=== PATIENT | male | born 1990 | race Caucasian/White ===

== ENCOUNTER 2017-08-16 22:56 | Inpatient (IN) | payer MEDICAID ==
[~2017-08-16] VITALS: Ht 185.4 cm; Wt 61.2 kg
[~2017-08-16 22:56] MED LIST: ACET-2869 PO; AMOX-999 PO; DOCU-299 PO; LACT1.4C PO
[2017-08-16 23:01] VITALS: BP 90/50
--- NOTE | 2017-08-16 23:05 | NUR ---
DR GALE AND CHARGE MADE AWARE. PT TO BE TAKEN TO A BED SSON BED IS AVAILABLE. PT AMBULATED TO CHAIR OVERFLOW.
[2017-08-16] MEDS ORDERED: IBUPROFEN 600 MG TAB PO ONE (23:15)
[2017-08-16] MEDS ORDERED: IBUPROFEN 600 MG TAB ONE (23:16)
[2017-08-16] MEDS ORDERED: NACL 0.9% 2,000 ML IV ONE (23:19)
--- NOTE | 2017-08-16 23:42 | NUR ---
PT TAKEN TO BED 12
--- NOTE | 2017-08-16 23:43 | NUR ---
PT SIGN CT WITH CONTRAST, PLACE IN PT CHART
--- NOTE | 2017-08-17 00:13 | NUR ---
Dr. Barker evaluating patient.
--- NOTE | 2017-08-17 00:25 | NUR ---
26 Y/O M W/C/O R SIDE ABD PAIN X LAST TUESDAY AND FEVER. PT STATES HAD AN APPENDECTOMY DONE HERE 02 08/13/17 AND HAS HAD A FEVER, COSTIPATION,SEVERE ABD PAIN SINCE THE. MED HX APPENDECTOMY.DENIES N/V/D; PATIENT STATES PAIN OF 10/10 AT THIS TIME; PATIENT POSITIONED FOR COMFORT; HOB ELEVATED; BEDRAILS UP X2; BED DOWN. ER MD MADE AWARE OF PT STATUS.
[2017-08-17 00:26] LABS: HEMATOCRIT 45.3 % (36-52); HEMOGLOBIN 14.6 g/dL (12.0-18.0); MEAN CORPUSCULAR HEMOGLOBIN 28 pg (27-31); MEAN CORPUSCULAR HGB CONC 32 g/dL (33-37); MEAN CORPUSCULAR VOLUME 87 fL (80-94); PLATELET COUNT (AUTO) 221 K/uL (140-450); RED BLOOD CELL COUNT(AUTO) 5.21 MIL/uL (4.20-6.10); RED CELL DISTRIBUTION WIDTH 12.5 % (11.6-13.7); WHITE BLOOD COUNT (AUTO) 13.5 K/uL (4.8-10.8)
[2017-08-17] MEDS ORDERED: ONDANSETRON 4 MG/2 ML VIAL IVP ONE (00:30)
[2017-08-17] MEDS ORDERED: MORPHINE SULFATE 4 MG/ML SYR IVP ONE (00:30)
[2017-08-17 00:32] LABS: APPEARANCE,URINE CLEAR (CLEAR); BILIRUBIN,URINE NEGATIVE (NEGATIVE); BLOOD, URINE TRACE-I (NEGATIVE); COLOR,URINE YELLOW (YELLOW); LEUKOCYTE ESTERASE ,URINE NEGATIVE (NEGATIVE); NITRITE, URINE NEGATIVE (NEGATIVE); PH,URINE 7.5 (5.0-9.0); UGLUCOSE NEGATIVE (NEGATIVE)
[2017-08-17 00:32] LABS: ANION GAP 15.4 (8-16); CARBON DIOXIDE 27.1 mmol/L (21-32); CREATININE 1.2 mg/dL (0.7-1.3); POTASSIUM 3.5 mmol/L (3.5-5.1)
--- NOTE | 2017-08-17 00:32 | NUR ---
PT LEFT TO RADIOLOGY VIA WHEELCHAIR, ACCOMPANIED BY SOURCING SPECIALIST
--- NOTE | 2017-08-17 00:32 | NUR ---
PT TAKEN TO CT
[2017-08-17 00:38] LABS: PROTHROMBIN TIME 11.3 secs (10.8-13.4)
[2017-08-17 00:39] LABS: ALBUMIN 3.7 g/dL (3.4-5.0); TOTAL BILIRUBIN 1.4 mg/dL (0.0-1.0)
[2017-08-17 00:46] LABS: LYMPHOCYTES % (MANUAL) 5 % (20-46); MONOCYTES % (MANUAL) 0 % (5-12)
--- NOTE | 2017-08-17 00:55 | NUR ---
PT RETURN FROM RADIOLOGY
[2017-08-17 00:57] LABS: RBC,URINE 0-5 (RARE) /HPF (0-5); WBC,URINE 0-5 (RARE) /HPF (0-5)
--- NOTE | 2017-08-17 01:34 | NUR ---
ON RAD; RESIDUAL APPENDIX FROM APPENDECTOMY; POSSIBLE ABSCESS;MILD ABOUT INTRAABDOMINAL FREE AIR; LIKELY POST-SX RELATED NO BOWEL OBSTRUCTION- ALDEN
--- NOTE | 2017-08-17 01:37 | NUR ---
ON RAD CALL WITH CRITICAL LAB FINDINGS INFLAMMATORY CHANGES, MD DR. GALE AWARE
[2017-08-17] MEDS ORDERED: NACL 0.9% 1,000 ML IV ONE (01:40)
[2017-08-17] MEDS ORDERED: metroNIDAZOLE 500 MG/NS PREMIX 100 ML IV ONE (01:40)
[2017-08-17] MEDS ORDERED: PIPERACILLIN/TAZOBACTAM 4.5 GM in DEXTROSE 5% 100 ML IV ONE (01:40)
--- NOTE | 2017-08-17 01:47 | NUR ---
ZOSYN 4.5GM NOT AVAILABLE IN ER, HOUSE SUP INFORMED
[2017-08-17] MEDS ORDERED: PIPERACILLIN/TAZOBACTAM 4.5 GM VIAL IV ONE (01:55)
[2017-08-17] MEDS ORDERED: DOCUSATE SODIUM 100 MG GELCAP PO PRN (02:20)
[2017-08-17 02:46] LABS: FREE T4 (FREE THYROXINE) 1.2 ng/dL (0.76-1.46); MAGNESIUM 1.6 mg/dL (1.8-2.4); PHOSPHORUS 1.9 mg/dL (2.5-4.9); THYROID STIMULATING HORMONE 1.54 uIU/mL (0.34-3.74)
--- NOTE | 2017-08-17 03:00 | NUR ---
ZOSYN 4.5 STARTED IN ER, ENDORSED TO DIANNA BARRON TO TELE FLOOR TO FINISH INFUSION
--- NOTE | 2017-08-17 03:09 | NUR ---
Patient will be admitted to care of DR. AMBROSE. Admited to TELE FLOOR. Will go to room 111A. Belongings list completed. Report to DIANNA BARRON.
--- NOTE | 2017-08-17 03:10 | NUR ---
ADMITTED PATIENT TO THE TELE UNIT, PATIENT AWAKE ALERT ORIENTED X4, NO S/S OF DISTRESS NOTED, RESPIRATION EVEN AND UNLABORED, IV PATENT AND INTACT, FLUSHED 10ML NS. TELE MONITOR PLACED ON PATIENT, PLAN OF CARE DISCUSSED, PATIENT VERBALIZED UNDERSTANDING, CALL LIGHT WITHIN REACH, SAFETY MEASURE ENSURED, WILL CONTINUE TO MONITOR.
[2017-08-17 03:40] VITALS: BP 90/52
[2017-08-17] MEDS ORDERED: LEVOFLOXACIN 750 MG/D5W PREMIX 150 ML IV SCH ×2 (04:00→08:00)
[2017-08-17] MEDS: NACL 0.9% 1,000 ML IV SCH ×3 (04:06→17:55)
[2017-08-17] MEDS ORDERED: metroNIDAZOLE 500 MG/NS PREMIX 100 ML IV SCH ×4 (05:00→13:00)
--- NOTE | 2017-08-17 06:11 | NUR ---
NO CHANGE IN CONDITION, PATIENT IS SLEEPING, NO S/S OF DISTRESS NOTED, RESPIRATION EVEN AND UNLABORED, CALL LIGHT WITHIN REACH, SAFETY MEASURE ENSURED, WILL CONTINUE TO MONITOR.
[2017-08-17] MEDS: HYDROcodone/APAP 7.5/325 MG 1 TAB PO PRN ×3 (06:47→17:10)
[2017-08-17 07:13] LABS: BASOPHILS # (AUTO) 0.4 K/uL (0.00-0.22); EOSINOPHILS # (AUTO) 0.1 K/uL (0-0.4); EOSINOPHILS % (AUTO) 0.5 % (0.0-4.0); HEMATOCRIT 37.3 % (36-52); HEMOGLOBIN 12.9 g/dL (12.0-18.0); LYMPHOCYTES # (AUTO) 1.3 K/uL (2.0-11.5); LYMPHOCYTES % (AUTO) 9.9 % (20.5-51.1); MEAN CORPUSCULAR HEMOGLOBIN 30 pg (27-31); MEAN CORPUSCULAR HGB CONC 35 g/dL (33-37); MEAN CORPUSCULAR VOLUME 86 fL (80-94); MONOCYTES # (AUTO) 0.7 K/uL (0.8-1.0); MONOCYTES % (AUTO) 5.7 % (1.7-9.3); NEUTROPHILS # (AUTO) 10.6 K/uL (1.8-7.7); NEUTROPHILS % (AUTO) 80.9 % (42.2-75.2); PLATELET COUNT (AUTO) 144 K/uL (140-450); RED BLOOD CELL COUNT(AUTO) 4.33 MIL/uL (4.20-6.10); RED CELL DISTRIBUTION WIDTH 12.9 % (11.6-13.7); WHITE BLOOD COUNT (AUTO) 13.1 K/uL (4.8-10.8)
--- NOTE | 2017-08-17 07:15 | NUR ---
ENDORSED PLAN OF CARE TO DAY SHIFT, PATIENT RESTING IN BED, IN STABLE CONDITION.
--- NOTE | 2017-08-17 07:16 | NUR ---
RECEIVED REPORT AT BEDSIDE FOR CONTINUITY OF CARE FROM BEAUTY CULTURIST APPRENTICE RN. PATIENT AWAKE ALERT ORIENTED X4, NO S/S OF DISTRESS NOTED, RESPIRATION EVEN AND UNLABORED, R AC AND L AC IVS PATENT, ASYMPTOMATIC, AND INTACT. R AC IV INFUSING IVF WELL. PLAN OF CARE DISCUSSED, PATIENT VERBALIZED UNDERSTANDING, SAFETY PRECAUTION IN PLACE, CALL LIGHT WITHIN REACH, WILL CONTINUE TO MONITOR.
[2017-08-17 07:44] LABS: ANION GAP 11.1 (8-16); CARBON DIOXIDE 28.4 mmol/L (21-32); CREATININE 0.9 mg/dL (0.7-1.3); POTASSIUM 4.5 mmol/L (3.5-5.1)
[2017-08-17 08:00] VITALS: BP 88/53
--- NOTE | 2017-08-17 08:58 | NUR ---
PATIENT HAS BEEN SCREENED AND CATEGORIZED MODERATE NUTRITION RISK. PATIENT WILL BE SEEN WITHIN 3-5 DAYS OF ADMISSION. 08/19/17-08/21/[address]
[2017-08-17] MEDS: DOCUSATE SODIUM 100 MG GELCAP PO SCH (09:12)
--- NOTE | 2017-08-17 10:30 | NUR ---
PT C/O 6/10 PAIN OF ABD D/T S/P APPENDECTOMY. NORCO PRN GIVEN. PT TOLERATED IT WELL. SAFETY PRECAUTION IN PLACE, CALL LIGHT WITHIN REACH, WILL CONTINUE TO MONITOR PATIENT.
[2017-08-17] MEDS: ACETAMINOPHEN 325 MG TAB PO PRN ×2 (11:43→18:40)
[2017-08-17] MEDS: MORPHINE SULFATE 2 MG/ML SYR IVP PRN (11:43)
--- NOTE | 2017-08-17 11:43 | NUR ---
PATIENT'S TEMP 102.6. PRN TYLENOL ADMINISTERED AND COOLING MEASURES BEGAN. MORPHINE PRN ALSO ADMINISTERED D/T PATIENT'S C/O 7/10 PAIN D/T S/P APPENDECTOMY. PATIENT TOLERATED IT WELL. SAFETY PRECAUTION IN PLACE, CALL LIGHT WITHIN REACH. WILL CONTINUE TO MONITOR PATIENT.
[2017-08-17 12:00] VITALS: BP 116/71
--- NOTE | 2017-08-17 12:30 | NUR ---
DR. GONZALEZ IN TO ASSESS THE PATIENT. WILL AWAIT FOR HER ORDERS.
--- NOTE | 2017-08-17 13:00 | NUR ---
BP 85/57, TEMP 101.6. MD AWARE. 500 ML NS BOLUS GIVEN. WILL CONTINUE TO MONITOR PATIENT.
--- NOTE | 2017-08-17 13:55 | NUR ---
DR. GONZALEZ AND DR. BROWN IN TO REASSESS PATIENT. WILL AWAIT THEIR UPDATED ORDERS.
[2017-08-17] MEDS: NACL 0.9% 500 ML IV SCH ×2 (14:13→15:24)
[2017-08-17] MEDS ORDERED: NICOTINE TRANSD SYS 7 MG/24 HR PATCH TD SCH (14:30)
--- NOTE | 2017-08-17 14:50 | NUR ---
BP 89/49, TEMP 99.9. MD AWARE. 500 ML NS BOLUS GIVEN. WILL CONTINUE TO MONITOR PATIENT.
--- NOTE | 2017-08-17 15:23 | NUR ---
BP 91/56, TEMP 99.2. AWARE. 500 ML NS BOLUS GIVEN. SAFETY PRECAUTION IN PLACE, CALL LIGHT WITHIN REACH. WILL CONTINUE TO MONITOR PATIENT. Addendum: 08/17/17 at 2026 by Cornelius Montes RN NO BOLUS GIVEN AT THIS TIME.
[2017-08-17] MEDS: MAGNESIUM OXIDE 400 MG TAB PO SCH (15:24)
[2017-08-17] MEDS ORDERED: NACL 0.9% 500 ML IV ONE (15:45)
[2017-08-17 16:00] VITALS: BP 97/57
--- NOTE | 2017-08-17 16:10 | NUR ---
BP 97/57, TEMP 98.1. PATIENT RESTING IN BED, GIRLFRIEND AT BEDSIDE. DENIES PAIN AT THIS TIME. BREATHING EVEN AND UNLABORED. SAFETY PRECAUTION IN PLACE, CALL LIGHT WITHIN REACH. WILL CONTINUE TO MONITOR PATIENT.
[2017-08-17] MEDS: PIPER/TAZO 3.375GM/D5W PREMIX 50 ML IV SCH ×2 (18:41→23:53)
--- NOTE | 2017-08-17 18:41 | NUR ---
IVPB ZOSYN ADMINISTERED. PATIENT TEMP 101.6. PRN TYLENOL ADMINISTERED. PATIENT TOLERATED THEM WELL. COOLING MEASURES PUT IN PLACE, WILL CONTINUE TO MONITOR PATIENT.
--- NOTE | 2017-08-17 19:25 | NUR ---
REPORT GIVEN AT BEDSIDE FOR CONTINUITY OF CARE TO WINDOW DRESSER RN. PATIENT IN STABLE CONDITION.
--- NOTE | 2017-08-17 19:28 | NUR ---
RECEIVED HANDOFF REPORT FROM AM RN. PATIENT A&OX4. PATIENT DENIES PAIN. IV SITE PATENT AND INTACT. NO SIGNS OR SYMPTOMS OF ACUTE DISTRESS NOTED. CALL LIGHT WITHIN REACH. SAFETY MEASURES ENSURED. WILL CONTINUE TO MONITOR.
--- NOTE | 2017-08-17 19:37 | NUR ---
DR. RODRIGUEZ IN TO SEE PATIENT
[2017-08-17 20:00] VITALS: BP 118/53
--- NOTE | 2017-08-17 20:00 | NUR ---
PATIENT OFF UNIT FOR CT. IV SITE PATENT AND INTACT.
--- NOTE | 2017-08-17 20:15 | NUR ---
PATIENT BACK ON UNIT FROM CT. IV SITE PATENT AND INTACT.
--- NOTE | 2017-08-17 20:30 | NUR ---
DR. RODRIGUEZ IN TO SEE PATIENT. DR. RODRIGUEZ SAID TO HOLD PM PO MEDICATION.
[2017-08-17] MEDS: SODIUM PHOS / POTASSIUM PHOS 1 PKT PDR PO SCH (21:00)
--- NOTE | 2017-08-17 21:15 | NUR ---
DR. RODRIGUEZ SPOKE WITH PATIENT REGARDING SURGERY. PATIENT HAS BEEN MADE AWARE OF RISKS AND BENEFITS OF SURGERY. PATIENT HAS DECLINED TO HAVE SECOND SURGERY. PATIENT IS AWARE OF RISKS BY DR. RODRIGUEZ.
[2017-08-17] MEDS ORDERED: BISACODYL 5 MG TABEC PO ONE (21:50)
--- NOTE | 2017-08-17 21:50 | NUR ---
BALBIR CALLED WITH CRITICAL CT. AWARE.
[2017-08-17] MEDS ORDERED: BISACODYL 5 MG TABEC PO SCH (22:00)
[2017-08-18] VITALS: BP 139/63
[2017-08-18] MEDS ORDERED: MAGNESIUM CITRATE 300 ML BTL PO SCH ×2 (02:09→08:00)
[2017-08-18 04:00] VITALS: BP 116/86
[2017-08-18] MEDS: ONDANSETRON 4 MG/2 ML VIAL IM/IVP PRN ×2 (05:28→21:51)
[2017-08-18] MEDS: PIPER/TAZO 3.375GM/D5W PREMIX 50 ML IV SCH ×3 (05:28→18:42)
[2017-08-18 06:27] LABS: T4 (THYROXINE) 6.8 ug/dL (4.5-12.0)
[2017-08-18 06:57] LABS: BASOPHILS # (AUTO) 0.1 K/uL (0.00-0.22); BASOPHILS % (AUTO) 0.5 % (0.0-2.0); EOSINOPHILS % (AUTO) 0.3 % (0.0-4.0); HEMATOCRIT 36.8 % (36-52); HEMOGLOBIN 12.9 g/dL (12.0-18.0); LYMPHOCYTES # (AUTO) 0.5 K/uL (2.0-11.5); LYMPHOCYTES % (AUTO) 3.4 % (20.5-51.1); MEAN CORPUSCULAR HEMOGLOBIN 30 pg (27-31); MEAN CORPUSCULAR HGB CONC 35 g/dL (33-37); MEAN CORPUSCULAR VOLUME 85 fL (80-94); MONOCYTES # (AUTO) 0.9 K/uL (0.8-1.0); MONOCYTES % (AUTO) 6.2 % (1.7-9.3); NEUTROPHILS # (AUTO) 13.1 K/uL (1.8-7.7); NEUTROPHILS % (AUTO) 89.6 % (42.2-75.2); PLATELET COUNT (AUTO) 138 K/uL (140-450); RED BLOOD CELL COUNT(AUTO) 4.36 MIL/uL (4.20-6.10); RED CELL DISTRIBUTION WIDTH 12.7 % (11.6-13.7)
[2017-08-18 07:15] LABS: MAGNESIUM 1.9 mg/dL (1.8-2.4); PHOSPHORUS 2.5 mg/dL (2.5-4.9)
[2017-08-18 07:18] LABS: ANION GAP 14.9 (8-16); CARBON DIOXIDE 23.9 mmol/L (21-32); CREATININE 0.8 mg/dL (0.7-1.3); POTASSIUM 3.8 mmol/L (3.5-5.1)
--- NOTE | 2017-08-18 07:30 | NUR ---
ENDORSED PLAN OF CARE TO AM RN. PATIENT IN STABLE CONDITION.
--- NOTE | 2017-08-18 07:31 | NUR ---
RECEIVED REPORT AT BEDSIDE FOR CONTINUITY OF CARE FROM MUSEUM SECURITY CHIEF RN. PATIENT AWAKE ALERT ORIENTED X4, NO S/S OF DISTRESS NOTED, RESPIRATION EVEN AND UNLABORED, R AC AND L AC IVS PATENT, ASYMPTOMATIC, AND INTACT. R AC IV INFUSING IVF WELL. PLAN OF CARE DISCUSSED, PATIENT VERBALIZED UNDERSTANDING, SAFETY PRECAUTION IN PLACE, CALL LIGHT WITHIN REACH, WILL CONTINUE TO MONITOR.
[2017-08-18 07:51] LABS: WHITE BLOOD COUNT (AUTO) 14.6 K/uL (4.8-10.8)
[2017-08-18 08:00] VITALS: BP 118/64
[2017-08-18] MEDS: NACL 0.9% 1,000 ML IV SCH ×2 (08:05→22:00)
[2017-08-18] MEDS: SODIUM PHOS / POTASSIUM PHOS 1 PKT PDR PO SCH ×2 (09:00→21:00)
[2017-08-18] MEDS: DOCUSATE SODIUM 100 MG GELCAP PO SCH (09:00)
[2017-08-18] MEDS: NICOTINE TRANSD SYS 7 MG/24 HR PATCH TD SCH (09:00)
[2017-08-18] MEDS: HYDROcodone/APAP 7.5/325 MG 1 TAB PO PRN ×2 (09:23→13:22)
--- NOTE | 2017-08-18 09:23 | NUR ---
MEDICATIONS ADMINISTERED ORDERED. PT C/O 12/20 PAIN OF ABD D/T S/P APPENDECTOMY. NORCO PRN ADMINISTERED. PT RESTING IN BED, NO SIGNS OF DISTRESS OR SOB NOTED. SAFETY PRECAUTION IN PLACE, CALL LIGHT WITHIN REACH, WILL CONTINUE TO MONITOR PATIENT. Addendum: 08/18/17 at 1948 by Cornelius Montes RN PT REFUSED MAG CITRATE AND NEUTROPHOS. EDUCATION GIVEN TO PATIENT ABOUT BENEFITS. PATIENT VERBALIZED UNDERSTANDING BUT STILL DID NOT WANT THE MEDICATION.
[2017-08-18] MEDS ORDERED: HYDROcodone/APAP 5/325 MG 1 TAB TAB PO SCH (11:30)
[2017-08-18 12:00] VITALS: BP 112/64
--- NOTE | 2017-08-18 13:12 | NUR ---
PATIENT AGREED TO THE SURGERY WITH DR. RODRIGUEZ. DR. GONZALEZ WAS INFORMED. SHE WILL CONTACT DR. RODRIGUEZ. WILL AWAIT PENDING ORDERS.
--- NOTE | 2017-08-18 13:22 | NUR ---
PT C/O 12/20 PAIN OF ABD D/T S/P APPENDECTOMY. NORCO PRN ADMINISTERED. PT RESTING IN BED, NO SIGNS OF DISTRESS OR SOB NOTED. SAFETY PRECAUTION IN PLACE, CALL LIGHT WITHIN REACH, WILL CONTINUE TO MONITOR PATIENT.
[2017-08-18] MEDS: MAGNESIUM OXIDE 400 MG TAB PO SCH (14:23)
--- NOTE | 2017-08-18 14:23 | NUR ---
MEDICATIONS ADMINISTERED ORDER. PT RESTING IN BED, NO SIGNS OF DISTRESS OR SOB NOTED. SAFETY PRECAUTION IN PLACE, CALL LIGHT WITHIN REACH, WILL CONTINUE TO MONITOR PATIENT.
[2017-08-18] MEDS: BUPIVACAINE-MPF 0.25% 30 ML VIAL INJ ONE ×2 (15:37→20:14)
[2017-08-18 16:00] VITALS: BP 106/68
--- NOTE | 2017-08-18 17:15 | NUR ---
DR. RODRIGUEZ IN TO SEE THE PATIENT. WILL AWAIT FOR RESULTS.
--- NOTE | 2017-08-18 17:34 | NUR ---
PATIENT LEFT THE FLOOR ACCOMPANIED BY 2 OR NURSES TO GO TO DIAGNOSTIC LAPAROSCOPIC WITH POSSIBLE EXPLORATORY LAPAROTOMY, DRAINAGE PERITONITIS, POSSIBLE COMPLETION APPENDECTOMY WITH DR. RODRIGUEZ. CONSENT OBTAINED. PATIENT IN STABLE CONDITION.
[2017-08-18] MEDS ORDERED: DEXAMETHASONE 4 MG/ML VIAL ONE (17:45)
[2017-08-18] MEDS ORDERED: GLYCOPYRROLATE 0.2 MG/ML VIAL ONE (17:45)
[2017-08-18] MEDS ORDERED: KETOROLAC 60 MG/2 ML VIAL IM ONE (17:45)
[2017-08-18] MEDS ORDERED: PROPOFOL 200 MG/20 ML VIAL IV ONE (17:45)
[2017-08-18] MEDS ORDERED: NEOSTIGMINE 1:1000 10 MG/10 ML VIAL ONE (17:45)
[2017-08-18] MEDS ORDERED: DESFLURANE 240 ML BTL INH ONE (17:45)
[2017-08-18] MEDS ORDERED: SUCCINYLCHOLINE CHLORIDE 200 MG/10 ML VIAL IVP ONE (17:45)
[2017-08-18] MEDS ORDERED: ROCURONIUM 50 MG/5 ML VIAL IV ONE (17:45)
[2017-08-18] MEDS ORDERED: ONDANSETRON 4 MG/2 ML VIAL ONE (17:45)
[2017-08-18] MEDS ORDERED: fentaNYL 0.05 MG/ML VIAL ONE (17:56)
[2017-08-18] MEDS ORDERED: MORPHINE SULFATE 4 MG/ML SYR ONE ×3 (17:56→20:46)
[2017-08-18] MEDS ORDERED: MIDAZOLAM 2 MG/2 ML VIAL ONE (17:56)
--- NOTE | 2017-08-18 18:42 | NUR ---
ZOSYN DOSE AT 1800 GIVEN TO OR TO GIVE TO PATIENT DURING SURGERY.
[2017-08-18] MEDS ORDERED: MORPHINE SULFATE 4 MG/ML SYR IVP PRN ×3 (19:00)
--- NOTE | 2017-08-18 19:39 | NUR ---
REPORT GIVEN TO COMMAND AND CONTROL NURSE. PATIENT IS STILL IN SURGERY WITH DR. RODRIGUEZ.
[2017-08-18 21:30] VITALS: BP 112/67
--- NOTE | 2017-08-18 21:30 | NUR ---
RECEIVED PT FROM OR VIA MARY REPORT GIVEN AT BED SIDE PT AAOX4 IV ON RT AC INFUSING WELL ON TELEMETRY SR 80, 02 SAT 97% BP 112/67 RESP 20 TEMP 98.7 ABD DRESSING DRY AND INTACT FERNANDA ON RT ABD SIDE DRAINING WELL SEROSANGUINEOUS LIQUID ON BILATERAL SEQUENTIAL STOCKING PAIN MEDIC WAS GIVEN IN OR PT WILL BE MONITORING RELATIVES AT BED SIDE INITIAL ASSESSMENT
[2017-08-18] MEDS ORDERED: MIDAZOLAM 2 MG/2 ML VIAL IV SCH (22:00)
[2017-08-18] MEDS: MORPHINE SULFATE 2 MG/ML SYR IVP PRN (22:55)
--- NOTE | 2017-08-18 23:30 | NUR ---
AFTER PAIN MEDIC GIVEN PT SLEEP QUIET NOT SIGNS OF DISTRESS EMPTY 40 ML FROM FERNANDA SEROSANGUINEOUS LIQUID ON TELEMETRY SR
[2017-08-19] VITALS: BP 117/72
[2017-08-19] MEDS: PIPER/TAZO 3.375GM/D5W PREMIX 50 ML IV SCH ×5 (00:46→23:30)
--- NOTE | 2017-08-19 01:00 | NUR ---
DENIES ANY PAIN FERNANDA DRAINING SEROSANGUINEOUS LIQUID 50 ML EMPTY AT THIS TIME, VOIDING WELL YKELLOW URINE DENIES ANY PAIN ON TELEMETRY SR
--- NOTE | 2017-08-19 03:47 | NUR ---
PT VOIDING WELL ON TELEMETRY SR DENIES ANY PAIN AT THIS TIME IV ON RT AC INFUSING WELL SLEEPING WELL ABD DRESSING DRY AND INTACT FERNANDA DRAINING WELL SEROSANGUINEOUS LIQUID
[2017-08-19 04:00] VITALS: BP 92/54
[2017-08-19] MEDS: NACL 0.9% 1,000 ML IV SCH ×3 (04:16→23:36)
[2017-08-19] MEDS: HYDROcodone/APAP 7.5/325 MG 1 TAB PO PRN ×3 (05:22→20:23)
--- NOTE | 2017-08-19 06:32 | NUR ---
;PT DENIES PAIN AFTER PAIN MEDIC GIVEN, ON TELEMETRY SR ABD DRESSING DRY AND INTACT, FERNANDA DRAINAGE TOTAL DURING BUSINESS TECHNOLOGY TEACHER 95 ML SEROSANGUINEOUS WILL BE CONTINUINING MONITORING, IV ON RT AC INFUSING WELL
[2017-08-19 07:07] LABS: ANION GAP 16.5 (8-16); CARBON DIOXIDE 22.8 mmol/L (21-32); CREATININE 0.8 mg/dL (0.7-1.3); POTASSIUM 4.3 mmol/L (3.5-5.1)
[2017-08-19 07:15] LABS: MAGNESIUM 1.9 mg/dL (1.8-2.4); PHOSPHORUS 3.6 mg/dL (2.5-4.9)
--- NOTE | 2017-08-19 07:15 | NUR ---
RECEIVED REPORT FROM ASSISTANT CHIEF NURSING OFFICER NURSE. PATIENT LYING DOWN IN BED SLEEPING, AROUSABLE BY VOICE. NO DISTRESS NOTED. DENIES ANY PAIN AT THIS TIME. RESPIRATIONS EVEN, UNLABORED, ON ROOM AIR. AAOX4, CALM, COOPERATIVE, SKIN COLOR APPROPRIATE TO ETHNICITY, WARM TO TOUCH. HAS ABDOMINAL SURGICAL WOUND S/P OPEN LAPAROTOMY FOR REMOVAL OF PORTION OF APPENDIX YESTERDAY 08/18/17. ABDOMEN SOFT, TENDER. LUNGS CTA ON ALL LOBES. REVIEWED PLAN OF CARE WITH PATIENT. PATIENT VERBALIZED UNDERSTANDING. IV SITE INTACT, PATENT AND INFUSING IVF PER ORDERS. SAFETY MEASURES IN PLACE, CALL LIGHT WITHIN REACH. WILL CONTINUE TO MONITOR.
[2017-08-19 08:00] VITALS: BP 95/62
[2017-08-19 08:49] LABS: HEMATOCRIT 36.8 % (36-52); HEMOGLOBIN 12.5 g/dL (12.0-18.0); MEAN CORPUSCULAR HEMOGLOBIN 29 pg (27-31); MEAN CORPUSCULAR HGB CONC 34 g/dL (33-37); MEAN CORPUSCULAR VOLUME 85 fL (80-94); PLATELET COUNT (AUTO) 170 K/uL (140-450); RED BLOOD CELL COUNT(AUTO) 4.32 MIL/uL (4.20-6.10); RED CELL DISTRIBUTION WIDTH 13.5 % (11.6-13.7); WHITE BLOOD COUNT (AUTO) 14.9 K/uL (4.8-10.8)
[2017-08-19 08:50] LABS: LYMPHOCYTES # (AUTO) 0.4 K/uL (2.0-11.5); LYMPHOCYTES % (AUTO) 2.5 % (20.5-51.1); MONOCYTES # (AUTO) 0.7 K/uL (0.8-1.0); MONOCYTES % (AUTO) 4.6 % (1.7-9.3); NEUTROPHILS # (AUTO) 13.8 K/uL (1.8-7.7); NEUTROPHILS % (AUTO) 92.9 % (42.2-75.2)
[2017-08-19] MEDS: NICOTINE TRANSD SYS 7 MG/24 HR PATCH TD SCH (09:00)
[2017-08-19] MEDS: DOCUSATE SODIUM 100 MG GELCAP PO SCH (09:31)
[2017-08-19] MEDS: SODIUM PHOS / POTASSIUM PHOS 1 PKT PDR PO SCH (09:31)
--- NOTE | 2017-08-19 09:39 | NUR ---
PATIENT SITTING IN BED WITH BREAKFAST TRAY IN FRONT. DIET CHANGED TO FULL LIQUIDS BY MD. NO DISTRESS NOTED. PAIN WITHIN TOLERABLE AT THIS TIME. SCHEDULED MEDICATIONS DUE GIVEN. SAFETY MEASURES IN PLACE, CALL LIGHT WITHIN REACH. WILL CONTINUE TO MONITOR.
--- NOTE | 2017-08-19 11:00 | NUR ---
PATIENT LYING DOWN IN BED TALKING WITH FAMILY MEMBER AT BEDSIDE. NO DISTRESS NOTED. PAIN WITHIN TOLERABLE. SAFETY MEASURES IN PLACE, CALL LIGHT WITHIN REACH. WILL CONTINUE TO MONITOR.
--- NOTE | 2017-08-19 12:00 | NUR ---
PATIENT AMBULATING AROUND [facility] WITH FAMILY MEMBER AT BEDSIDE. WILL CONTINUE TO MONITOR.
--- NOTE | 2017-08-19 13:08 | NUR ---
PATIENT BACK TO BED FROM AMBULATING. COMPLAINTS OF 6/10 ABDOMINAL PAIN S/P SURGERY. NORCO GIVEN PER ORDERS. SCHEDULED ANTIBIOTIC MEDICATION DUE GIVEN. SAFETY MEASURES IN PLACE, CALL LIGHT WITHIN REACH, WILL CONTINUE TO MONITOR.
[2017-08-19 16:00] VITALS: BP 104/63
[2017-08-19] MEDS: MAGNESIUM OXIDE 400 MG TAB PO SCH (16:33)
--- NOTE | 2017-08-19 16:45 | NUR ---
PATIENT LYING DOWN IN BED, AROUSABLE BY VOICE. NO DISTRESS NOTED. DENIES ANY PAIN AT THIS TIME. SCHEDULED MEDICATIONS DUE GIVEN. IV SITE IS LEAKING, WILL START NEW IV LINE. SAFETY MEASURES IN PLACE, CALL LIGHT WITHIN REACH. WILL CONTINUE TO MONITOR.
--- NOTE | 2017-08-19 17:53 | NUR ---
PATIENT SITTING IN BED TALKING WITH FAMILY MEMBER AT BEDSIDE. NO DISTRESS NOTED. DENIES ANY PAIN AT THIS TIME. SCHEDULED ANTIBIOTIC MEDICATION DUE GIVEN. SAFETY MEASURES IN PLACE, CALL LIGHT WITHIN REACH. WILL CONTINUE TO MONITOR.
--- NOTE | 2017-08-19 18:29 | NUR ---
PATIENT SITTING IN BED WITH DINNER TRAY IN FRONT. NO DISTRESS NOTED. DENIES ANY PAIN AT THIS TIME. FAMILY MEMBER AT BEDSIDE. EMPTIED FERNANDA DRAIN WITH SEROSANGUINOUS DRAINAGE WITH A TOTAL OF 45 ML IN THIS AM SHIFT. WILL CONTINUE TO MONITOR.
--- NOTE | 2017-08-19 19:20 | NUR ---
RECEIVED PATIENT LYING ON BED WITH IV INFUSING WELL. BED ON LOW POSITION, CALL LIGHTS WITHIN REACH. PATIENT IS ACCOMPANIED BY HIS . NO S/S OF DISTRESS. WILL CONTINUE TO MONITOR.
--- NOTE | 2017-08-19 19:22 | NUR ---
GAVE REPORT TO DISTRIBUTION CENTER SUPERVISOR NURSE FOR CONTINUITY OF CARE. PATIENT IN STABLE CONDITION.
--- NOTE | 2017-08-19 20:00 | NUR ---
SEEN PATIENT LYING COMFORTABLE ON BED . LOW BED POSITION, CALL LIGHT WITHIN REACH.
[2017-08-20] VITALS: BP 104/58
[2017-08-20] MEDS: PIPER/TAZO 3.375GM/D5W PREMIX 50 ML IV SCH ×4 (05:26→23:25)
[2017-08-20] MEDS: HYDROcodone/APAP 7.5/325 MG 1 TAB PO PRN ×2 (05:37→10:52)
[2017-08-20] MEDS: ALUMINUM HYD/MAG/SIMETHICONE 30 ML UDC PO PRN ×2 (05:45→13:30)
--- NOTE | 2017-08-20 06:52 | NUR ---
PT AMBULATED TO BR WITH MINIMAL ASSIST, PT VERBALIZED HAD SMALL SOFT BM AND PASSED A LOT OF GAS, FEELING MUCH BETTER, ASSISTED BACK TO BED AND RESUMED IVF, ADDITIONAL FERNANDA DRAIN 60ML SEROSANGUINEOUS FLUID NOTED, MONITORED CLOSELY.
[2017-08-20 07:06] LABS: BASOPHILS # (AUTO) 0.1 K/uL (0.00-0.22); BASOPHILS % (AUTO) 0.7 % (0.0-2.0); EOSINOPHILS # (AUTO) 0.1 K/uL (0-0.4); EOSINOPHILS % (AUTO) 0.8 % (0.0-4.0); HEMATOCRIT 36.4 % (36-52); HEMOGLOBIN 12.5 g/dL (12.0-18.0); MEAN CORPUSCULAR HEMOGLOBIN 30 pg (27-31); MEAN CORPUSCULAR HGB CONC 35 g/dL (33-37); MEAN CORPUSCULAR VOLUME 86 fL (80-94); MONOCYTES # (AUTO) 0.8 K/uL (0.8-1.0); MONOCYTES % (AUTO) 9.1 % (1.7-9.3); NEUTROPHILS # (AUTO) 7.1 K/uL (1.8-7.7); NEUTROPHILS % (AUTO) 78.4 % (42.2-75.2); PLATELET COUNT (AUTO) 188 K/uL (140-450); RED BLOOD CELL COUNT(AUTO) 4.24 MIL/uL (4.20-6.10); RED CELL DISTRIBUTION WIDTH 12.9 % (11.6-13.7); WHITE BLOOD COUNT (AUTO) 9.1 K/uL (4.8-10.8)
--- NOTE | 2017-08-20 07:18 | NUR ---
ASSUMED CONTINUITY OF CARE. NO SIGNS AND SYMPTOMS OF ACUTE DISTRESS NOTICED. INITIAL ASSESSMENT DONE. KEEP COMFORTABLE ON BED. EXPLAINED DIAGNOSIS, PLAN OF CARE, POST-OP CARE, PAIN MANAGEMENT TEACHING, FERNANDA DRAIN CARE, AMBULATION ENCOURAGEMENT, USE OF CALL LIGHT/BED/TV/BATHROOM. VERBALIZED UNDERSTANDING. CALL LIGHT WITHIN REACH.
--- NOTE | 2017-08-20 07:18 | NUR ---
ENDORSED PATIENT TO AM SHIFT NURSE FOR CONTINUITY OF CARE. PATIENT IS STABLE CONDITION , NO S/S OF DISTRESS.
[2017-08-20 07:41] LABS: ANION GAP 11.7 (8-16); CARBON DIOXIDE 27.9 mmol/L (21-32); CREATININE 0.7 mg/dL (0.7-1.3); POTASSIUM 3.6 mmol/L (3.5-5.1)
[2017-08-20 07:47] LABS: MAGNESIUM 2.1 mg/dL (1.8-2.4); PHOSPHORUS 2.4 mg/dL (2.5-4.9)
[2017-08-20 08:00] VITALS: BP 108/66
--- NOTE | 2017-08-20 08:00 | NUR ---
Patient's Plan of Care was discussed and reviewed with COUNTER PROFESSIONAL: TORI ROBERSON. CRUZ
[2017-08-20] MEDS: DOCUSATE SODIUM 250 MG GELCAP PO SCH (08:47)
[2017-08-20] MEDS: NICOTINE TRANSD SYS 7 MG/24 HR PATCH TD SCH (09:00)
--- NOTE | 2017-08-20 10:45 | NUR ---
DR. GONZALEZ WENT INSIDE PT. ROOM AND SPOKE TO PT. AT BEDSIDE.
--- NOTE | 2017-08-20 11:10 | NUR ---
ENCOURAGED PT. TO AMBULATE ON THE HALLWAY AND OFFERED ASSISTANCE. PT. REFUSED TO AMBULATE. KEEP COMFORTABLE ON BED.
[2017-08-20] MEDS: SIMETHICONE 40 MG/0.6 ML PO SCH ×2 (11:31→20:13)
[2017-08-20 12:00] VITALS: BP 120/79
--- NOTE | 2017-08-20 12:46 | NUR ---
08/20/17 RD INITIAL ASSESSMENT COMPLETED PLEASE REFER TO NUTRITION ASSESSMENT UNDER CARE ACTIVITY FOR ESTIMATED NUTRITIONAL NEEDS. RD RECOMMENDATIONS: 1. CONTINUE FULL LIQUID DIET MEDICALLY APPROPRIATE. -NOTE PTS PO INTAKE IS MEETING GREATER THAN 75% OF ESTIMATED NUTRITION NEEDS. 2. IF/WHEN PT IS MEDICALLY STABLE TO ADVANCE DIET, CONSIDER REGULAR DIET. 3. RD WILL F/U 3-5 DAYS; MODERATE RISK. HALI MENDOZA, RD
[2017-08-20] MEDS: MORPHINE SULFATE 2 MG/ML SYR IVP PRN ×2 (13:13→17:56)
[2017-08-20] MEDS: ONDANSETRON 4 MG/2 ML VIAL IM/IVP PRN (13:23)
[2017-08-20] MEDS ORDERED: ALUMINUM HYD/MAG/SIMETHICONE 30 ML UDC PO SCH (14:20)
--- NOTE | 2017-08-20 14:22 | NUR ---
INFORMED DR. GONZALEZ ABOUT FERNANDA DRAIN OUTPUT TOTAL 270 ML SINCE START OF AM SHIFT. INFORMED CHARGE NURSE ISABEL PALM -ANDERSON. PAGED DR. RODRIGUEZ AND LEFT CALL BACK NUMBER.
--- NOTE | 2017-08-20 14:25 | NUR ---
DR. RODRIGUEZ CALLED BACK AND INFORMED THAT TOTAL OUTPUT FROM FERNANDA DRAIN SINCE START OF AM SHIFT WAS 270 ML AND FERNANDA DRAIN STILL DRAINING. GOT T.O. ORDER CREAT LEVEL FROM FERNANDA DRAIN FLUID, READ BACK AND VERIFIED. INFORMED CHARGE NURSE MADELIN DUNAWAY AND DR. NICOLAS ABOUT DR. RODRIGUEZ ORDER OF CREAT LEVEL FROM FERNANDA DRAIN FLUID.
[2017-08-20] MEDS: NACL 0.9% 1,000 ML IV SCH ×2 (15:26→20:16)
--- NOTE | 2017-08-20 15:43 | NUR ---
DR. GONZALEZ SPOKE AND ASSESSED PT. AT BEDSIDE. NO ACUTE DISTRESS NOTED.
[2017-08-20 15:45] VITALS: BP 122/78
[2017-08-20] MEDS ORDERED: PROMETHAZINE 25 MG/ML VIAL IVP SCH (15:50)
[2017-08-20] MEDS ORDERED: BISACODYL 10 MG SUPP RC SCH (15:50)
[2017-08-20] MEDS: METOCLOPRAMIDE 10 MG TAB PO SCH (16:19)
[2017-08-20] MEDS: SODIUM PHOS / POTASSIUM PHOS 1 PKT PDR PO SCH (16:27)
--- NOTE | 2017-08-20 17:48 | NUR ---
TOTAL FERNANDA DRAIN OUTPUT 725 ML AT THIS TIME. INFORMED CHARGE NURSE ISABEL PALM -ANDERSON AND DR. GONZALEZ. PAGED DR. RODRIGUEZ AND LEFT CALL BACK NUMBER.
--- NOTE | 2017-08-20 17:50 | NUR ---
DR. RODRIGUEZ CALLED BACK, INFORMED THAT TOTAL FERNANDA DRAIN OUTPUT WAS 725 ML OF THIS TIME. PER DR. RODRIGUEZ, HE WILL SEE PT. INFORMED CHARGE NURSE AND DR. GONZALEZ.
--- NOTE | 2017-08-20 18:20 | NUR ---
DR. RODRIGUEZ CAME, SEEN PT. AND SPOKE TO PT. AT BEDSIDE. DR. RODRIGUEZ EMPTIED FERNANDA DRAIN WITH 45 ML OUTPUT, AND REMOVED ABD DRESSING AND OPEN TO AIR.
--- NOTE | 2017-08-20 19:12 | NUR ---
REPORT GIVEN TO MICHEL JUNG -ANDERSON. IVF INFUSING WELL. IN STABLE CONDITION. ALSO ENDORSED ABOUT FERNANDA DRAIN OUTPUT 725 ML FOR AM SHIFT AND DR. RODRIGUEZ WAS AWARE.
--- NOTE | 2017-08-20 19:15 | NUR ---
RECEIVED PT SLEEPING, EASILY AROUSABLE, DENIES PAIN AT THIS TIME, VITAL SIGNS STABLE, ABDOMINAL INCISION WITH STAPLE INTACT, VERY SCANT BLEEDING NOTED TO UPPER STAPLE NOTED, KEEP INCISION OPEN TO AIR PER REPORT, FERNANDA DRAIN INTACT DRAINING MODERATE AMOUNT OF YELLOW FLUID, CONTINUE ON BULB SUCTION, TOLERATING CLEAR LIQUID BUT FAIR APPETITE, NOT PASSING GAS AT THIS TIME PER PT, IVF INFUSING WELL, PLAN OF CARE DISCUSSED WITH FAMILY MEMBERS AT BEDSIDE, AWAITING DR WOODWARD FOR CONSULT, SAFETY MEASURES IN PLACE, CALL LIGHT WITHIN REACH.
[2017-08-20 20:00] VITALS: BP 121/77
--- NOTE | 2017-08-20 21:29 | NUR ---
AMBULATED TO BR ASSISTED BY GIRLFRIEND, VERBALIZED HAD SMALL BM AND PASSING GAS, ASSISTED BACK TO BED, DENIES ANY PAIN, FERNANDA DRAIN WITH 100ML YELLOW DRAINAGE, CONTINUE ON BULB SUCTION, MONITORED CLOSELY.
--- NOTE | 2017-08-20 22:35 | NUR ---
DR WOODWARD CAME IN AND SAW PT, WITH NEW ORDERS, CALLED LAB AND SPOKE TO RADHA TO FOLLOW UP RESULT OF CREATININE ON FERNANDA DRAINAGE, SHE SAID IT'S A SENT OUT TO LAB [facility], DR WOODWARD SAID TO NOTIFY HIM IF THE CREATININE RESULT IS IN, ORDERED US OF KIDNEYS AND SAID IT'S FANNIE TO BE DONE TOMORROW MORNING.
--- NOTE | 2017-08-20 23:30 | NUR ---
PT SLEEPING, EASILY AROUSABLE, VITAL SIGNS STABLE, DENIES ANY PAIN, FERNANDA EMPTIED WITH 100ML YELLOW DRAINAGE, IV ANTIBIOTIC ADMINISTERED, CONTINUE TO MONITOR CLOSELY.
[2017-08-21] MEDS: SIMETHICONE 40 MG/0.6 ML PO SCH ×3 (05:00→20:27)
--- NOTE | 2017-08-21 05:10 | NUR ---
PT AMBULATED TO BR, VERBALIZED HAD WATERY STOOL MODERATE AMOUNT AND PASSING GAS, DENIES ANY PAIN, MONITORED CLOSELY.
[2017-08-21] MEDS: PIPER/TAZO 3.375GM/D5W PREMIX 50 ML IV SCH ×3 (05:25→18:15)
[2017-08-21] MEDS: METOCLOPRAMIDE 10 MG TAB PO SCH ×3 (06:39→17:00)
--- NOTE | 2017-08-21 06:40 | NUR ---
DUE PO MEDICATION TAKEN, TOTAL FERNANDA DRAIN OF 590 ML YELLOWISH FLUID, DENIES PAIN, AWAITING US OF KIDNEY.
--- NOTE | 2017-08-21 07:15 | NUR ---
PT AWAKE, NO DISTRESS NOTED, REPORT GIVEN TO TORI FOR CONTINUITY OF CARE.
--- NOTE | 2017-08-21 07:15 | NUR ---
ASSUMED CONTINUITY OF CARE. NO SIGN AND SYMPTOMS OF ACUTE DISTRESS NOTED. INITIAL ASSESSMENT DONE. EXPLAINED DIAGNOSIS, PLAN OF CARE, POST-OP CARE, INCISION CARE, PAIN MANAGEMENT TEACHING, DIET, AMBULATION ENCOURAGEMENT, USE OF CALL LIGHT/BED/TV/BATHROOM. VERBALIZED UNDERSTANDING. CALL LIGHT WITHIN REACH.
[2017-08-21 07:19] LABS: BASOPHILS # (AUTO) 0.2 K/uL (0.00-0.22); BASOPHILS % (AUTO) 2.5 % (0.0-2.0); EOSINOPHILS # (AUTO) 0.1 K/uL (0-0.4); EOSINOPHILS % (AUTO) 0.7 % (0.0-4.0); HEMATOCRIT 40.5 % (36-52); HEMOGLOBIN 13.6 g/dL (12.0-18.0); LYMPHOCYTES # (AUTO) 1.1 K/uL (2.0-11.5); LYMPHOCYTES % (AUTO) 13.9 % (20.5-51.1); MEAN CORPUSCULAR HEMOGLOBIN 29 pg (27-31); MEAN CORPUSCULAR HGB CONC 34 g/dL (33-37); MEAN CORPUSCULAR VOLUME 86 fL (80-94); MONOCYTES # (AUTO) 1.1 K/uL (0.8-1.0); NEUTROPHILS # (AUTO) 5.7 K/uL (1.8-7.7); NEUTROPHILS % (AUTO) 69.9 % (42.2-75.2); PLATELET COUNT (AUTO) 246 K/uL (140-450); RED BLOOD CELL COUNT(AUTO) 4.72 MIL/uL (4.20-6.10); RED CELL DISTRIBUTION WIDTH 12.6 % (11.6-13.7); WHITE BLOOD COUNT (AUTO) 8.2 K/uL (4.8-10.8)
[2017-08-21 08:00] VITALS: BP 118/74
--- NOTE | 2017-08-21 08:00 | NUR ---
Patient's Plan of Care was discussed and reviewed with TAR HEATER: TERRANCE ROBERSON
[2017-08-21] MEDS: SODIUM PHOS / POTASSIUM PHOS 1 PKT PDR PO SCH ×3 (08:23→17:00)
[2017-08-21] MEDS: DOCUSATE SODIUM 250 MG GELCAP PO SCH (08:27)
[2017-08-21] MEDS: NICOTINE TRANSD SYS 7 MG/24 HR PATCH TD SCH (08:28)
[2017-08-21 08:55] LABS: PHOSPHORUS 2.8 mg/dL (2.5-4.9)
[2017-08-21 08:58] LABS: ANION GAP 9.7 (8-16); CARBON DIOXIDE 29.4 mmol/L (21-32); CREATININE 0.8 mg/dL (0.7-1.3); POTASSIUM 3.1 mmol/L (3.5-5.1)
--- NOTE | 2017-08-21 09:05 | NUR ---
AMBULATES ON HALLWAY WITH ASSIST FROM PT. GIRLFRIEND. TOLERATED WELL. NO C/O PAIN.
[2017-08-21] MEDS: HYDROcodone/APAP 7.5/325 MG 1 TAB PO PRN ×2 (09:39→18:22)
[2017-08-21] MEDS: NACL 0.9% 1,000 ML IV SCH (10:29)
[2017-08-21] MEDS ORDERED: POTASSIUM CHLORIDE 40 MEQ, LIDOCAINE 1% 25 MG in NACL 0.9% 250 ML IV ONE (10:45)
[2017-08-21] MEDS ORDERED: KCL 20 MEQ/WATER INJ PREMIX 200 ML IV ONE (10:45)
[2017-08-21 12:00] VITALS: BP 102/64
--- NOTE | 2017-08-21 15:18 | NUR ---
DR. RODRIGUEZ CAME, SEEN PT. AND REVIEWED PT. CHART. INFORMED OF PT. FERNANDA DRAIN OUTPUT 170 ML OF THIS TIME.
--- NOTE | 2017-08-21 16:30 | NUR ---
AMBULATES ON HALLWAY WITH ASSISTANCE FROM PT. GIRLFRIEND. TOLERATED WELL. NO C/O PAIN.
--- NOTE | 2017-08-21 19:11 | NUR ---
BEDSIDE REPORT GIVEN TO SP DUNAWAY. IVF INFUSING WELL. IN STABLE CONDITION. ALSO ENDORSED ABOUT TO CALL DR. WOODWARD FOR RESULTS OF FERNANDA DRAIN SPECIMEN.
--- NOTE | 2017-08-21 19:12 | NUR ---
RECEIVED BESIDE REPORT FROM DAY SHIFT NURSE TORI SANTIAGO, PT STABLE, NO DISTRESS NOTED, IV TO R FA 20G RUNNING NS @ 70ML/HR, INFUSING WELL, PT ON ROOM AIR, NO SOB, INCISION INTACT, FERNANDA DRAIN IN PLACE DRAINING SEROUS SANGUINOUS FLUID, FAMILY BY BEDSIDE, ALL SAFETY PRECAUTION MET, INITIAL ASSESSMENT DONE, WILL CONTINUE TO MONITOR.
--- NOTE | 2017-08-21 21:00 | NUR ---
CHECKED ON PT, PT SLEEPING, NO DISTRESS NOTED, FAMILY BY BEDSIDE, WILL CONTINUE TO MONITOR.
--- NOTE | 2017-08-21 22:10 | NUR ---
ASSIST PT AMBULATE TO RESTROOM AND BACK TO BED, PT STABLE, NO DISTRESS NOTED, CALL LIGHT WITHIN REACH, WILL CONTINUE OT MONITOR
[2017-08-22] VITALS: BP 112/76
[2017-08-22] MEDS: PIPER/TAZO 3.375GM/D5W PREMIX 50 ML IV SCH ×2 (00:01→05:52)
[2017-08-22] MEDS: HYDROcodone/APAP 7.5/325 MG 1 TAB PO PRN ×4 (00:01→21:19)
--- NOTE | 2017-08-22 00:01 | NUR ---
DUE MEDICATION GIVEN, PT C/O PAIN 6/10 ON THE INCISION SITES, PAIN MEDICATION GIVEN, PT TOLERATED WELL, NO DISTRESS NOTED, CALL LIGHT WITHIN REACH, WILL CONTINUE TO MONITOR.
[2017-08-22] MEDS: NACL 0.9% 1,000 ML IV SCH ×2 (01:35→10:36)
--- NOTE | 2017-08-22 02:20 | NUR ---
CHECKED ON PT, PT SLEEPING, NO DISTRESS NOTED, CALL LIGHT WITHIN REACH, WILL CONTINUE TO MONITOR.
--- NOTE | 2017-08-22 04:23 | NUR ---
CHECKED ON PT, PT SLEEPING, NO DISTRESS NOTED, CALL LIGHT WITHIN REACH, WILL CONTINUE TO MONITOR.
[2017-08-22] MEDS: SIMETHICONE 40 MG/0.6 ML PO SCH ×3 (04:43→21:00)
[2017-08-22 06:15] LABS: BASOPHILS # (AUTO) 0.1 K/uL (0.00-0.22); BASOPHILS % (AUTO) 1.6 % (0.0-2.0); EOSINOPHILS # (AUTO) 0.3 K/uL (0-0.4); HEMATOCRIT 39.5 % (36-52); HEMOGLOBIN 13.4 g/dL (12.0-18.0); LYMPHOCYTES # (AUTO) 2.1 K/uL (2.0-11.5); LYMPHOCYTES % (AUTO) 23.2 % (20.5-51.1); MEAN CORPUSCULAR HEMOGLOBIN 29 pg (27-31); MEAN CORPUSCULAR HGB CONC 34 g/dL (33-37); MEAN CORPUSCULAR VOLUME 86 fL (80-94); MONOCYTES % (AUTO) 11.3 % (1.7-9.3); NEUTROPHILS # (AUTO) 5.4 K/uL (1.8-7.7); NEUTROPHILS % (AUTO) 60.9 % (42.2-75.2); PLATELET COUNT (AUTO) 278 K/uL (140-450); RED BLOOD CELL COUNT(AUTO) 4.59 MIL/uL (4.20-6.10); RED CELL DISTRIBUTION WIDTH 12.5 % (11.6-13.7); WHITE BLOOD COUNT (AUTO) 8.9 K/uL (4.8-10.8)
[2017-08-22 06:32] LABS: ANION GAP 12.7 (8-16); CARBON DIOXIDE 27.9 mmol/L (21-32); CREATININE 0.7 mg/dL (0.7-1.3); POTASSIUM 3.6 mmol/L (3.5-5.1)
[2017-08-22 06:40] LABS: PHOSPHORUS 4.8 mg/dL (2.5-4.9)
[2017-08-22] MEDS: METOCLOPRAMIDE 10 MG TAB PO SCH ×3 (06:50→16:30)
--- NOTE | 2017-08-22 07:25 | NUR ---
ENDORSED PLAN OF CARE TO DAY SHIFT NURSE [place] RN, PT STABLE, NO DISTRESS NOTED, CALL LIGHT WITHIN REACH.
--- NOTE | 2017-08-22 07:26 | NUR ---
RECEIVED BESIDE REPORT FROM BLOOD BANK ORDER CONTROL CLERK NURSE, PT STABLE, NO DISTRESS NOTED, IV TO R FA 20G RUNNING NS @ 70ML/HR, INFUSING WELL, PT ON ROOM AIR, NO SOB, INCISION INTACT, FERNANDA DRAIN IN PLACE DRAINING SEROUS SANGUINOUS FLUID, SAFETY PRECAUTION IN PLACE, INITIAL ASSESSMENT DONE, UPDATED THE BOARD, CALL LIGHT WITHIN REACH. WILL CONTINUE TO MONITOR.
[2017-08-22 08:00] VITALS: BP 117/73
[2017-08-22] MEDS: SODIUM PHOS / POTASSIUM PHOS 1 PKT PDR PO SCH ×3 (08:06→17:00)
--- NOTE | 2017-08-22 08:08 | NUR ---
ADMINISTERED MORNING MEDICATIONS. PATIENT TOLERATED IT WELL. SAFETY PRECAUTION IN PLACE, CALL LIGHT WITHIN REACH, WILL CONTINUE TO MONITOR PATIENT.
[2017-08-22] MEDS: NICOTINE TRANSD SYS 7 MG/24 HR PATCH TD SCH (08:14)
[2017-08-22] MEDS: DOCUSATE SODIUM 250 MG GELCAP PO SCH (08:14)
--- NOTE | 2017-08-22 10:20 | NUR ---
PATIENT RESTING IN BED, NO SIGNS OF DISTRESS OR SOB NOTED. SAFETY PRECAUTION IN PLACE, CALL LIGHT WITHIN REACH, WILL CONTINUE TO MONITOR PATIENT.
--- NOTE | 2017-08-22 12:45 | NUR ---
FOLLOWED UP WITH LAB PERSONNEL, JESSIE, ABOUT CREATININE TEST ON THE BODY FLUID IN THE FERNANDA DRAIN. WAS TOLD, IT HAD BEEN SENT OUT LAST NIGHT TO [facility], LABELED UNDER MISCELLANEOUS IN LAB. LAB WILL CALL WHEN THE RESULTS COME BACK. PATIENT RESTING IN BED, EATING REGULAR LUNCH. HE'S TOLERATING IT WELL. NO SIGNS OR SYMPTOMS OF DISTRESS OR SOB NOTED. CALL LIGHT WITHIN REACH. WILL CONTINUE TO MONITOR PATIENT.
--- NOTE | 2017-08-22 15:15 | NUR ---
PATIENT RESTING IN BED, NO SIGNS OF DISTRESS OR SOB NOTED. SAFETY PRECAUTION IN PLACE, CALL LIGHT WITHIN REACH, WILL CONTINUE TO MONITOR PATIENT.
[2017-08-22] MEDS ORDERED: CEPH-1019 PO (15:52)
[2017-08-22] MEDS ORDERED: ONDA4TAB PO (15:52)
[2017-08-22 16:00] VITALS: BP 104/62
--- NOTE | 2017-08-22 17:35 | NUR ---
PATIENT AMBULATING AROUND FLOOR ON STEADY GAIT WITH GIRLFRIEND. WILL CONTINUE TO MONITOR PATIENT.
--- NOTE | 2017-08-22 18:07 | NUR ---
DR RODRIGUEZ, IN TO SEE THE PATIENT. HE DISCONNECTED THE PATIENT'S FERNANDA DRAIN. 10 ML OF SANGUINOUS FLUID DRAINED. PATIENT TOLERATED IT WELL. NORCO PRN GIVEN FOR THE 7/10 PAIN FROM REMOVAL OF FERNANDA DRAIN. GIRLFRIEND AT BEDSIDE, PATIENT RESTING IN BED, EATING DINNER. SAFETY PRECAUTION IN PLACE, WILL CONTINUE TO MONITOR PATIENT.
--- NOTE | 2017-08-22 18:40 | NUR ---
INFORMED DR. BROWN OF DR. RODRIGUEZ'S REMOVAL OF FERNANDA DRAIN.
--- NOTE | 2017-08-22 19:25 | NUR ---
REPORT GIVEN TO STOPPER GRINDER NURSE AT BEDSIDE FOR CONTINUITY OF CARE. ENDORSED DISCHARGE TO STOPPER GRINDER NURSE. PATIENT IN STABLE CONDITION.
--- NOTE | 2017-08-22 19:26 | NUR ---
RECEIVED PT FROM DAY SHIFT NURSE AZUL-RN. PT RESTING IN BED WITH GIRLFRIEND AT BEDSIDE. AOX4. ON ROOM AIR. RIGHT FA 20G, NS RUNNING AT 70ML/HR. S/P EXPLORATORY APPENDECTOMY BY DR. RODRIGUEZ. INCISIONS ON ABDOMEN, STAPLED SHUT, OPEN TO AIR. FERNANDA REMOVED AND COVERED WITH DRESSING. ON ROOM AIR. NO S/S OF RESPIRATORY DISTRESS OR DISCOMFORT. CALL LIGHT WITHIN REACH. BED IN LOWEST POSITION. WILL CONTINUE TO MONITOR.
--- NOTE | 2017-08-22 21:20 | NUR ---
PT REFUSED MYLICON 40MG/PO. REQUESTED PAIN MEDICATION. NORCO GIVEN ORDERED FOR PAIN.
[2017-08-22 21:36] VITALS: BP 109/68
--- NOTE | 2017-08-22 23:00 | NUR ---
SPOKE WITH DR. LOMBARDI ABOUT AN EXCUSE NOTE PT REQUESTED FOR SCHOOL. USED A PRESCRIPTION PAD TO HAND WRITE EXCUSE FROM SCHOOL NOTE.
--- NOTE | 2017-08-22 23:45 | NUR ---
PT DISCHARED HOME USING OWN TRANSPORTATION. IV WAS REMOVED, AND INTACT. ID BANDS REMOVED. PT WAS WHEELED OUT OF THE HOSPITAL BY LUIS BOWER. PT IN STABLE CONDITION.
[2017-08-23] MEDS ORDERED: PIPER/TAZO 3.375GM/D5W PREMIX 50 ML IV SCH
== END 2017-08-22 23:45 | disposition home or self-care (01) | DRG 225 ==
LOC: MED 22:56 → MTU 08-17 02:16
PROVIDERS: ADMIT Family Medicine Sports Medicine; ATTEND Family Medicine Sports Medicine
PROC: 0W9G4ZZ Drainage of Peritoneal Cavity, Percutaneous Endoscopic Approach (ICD-10-PCS; 2017-08-18)
PROC: 0D9W00Z Drainage of Peritoneum with Drainage Device, Open Approach (ICD-10-PCS; 2017-08-18)
PROC: 0DTJ0ZZ Resection of Appendix, Open Approach (ICD-10-PCS; principal; 2017-08-18 17:00)
PROC: 0DPW30Z Removal of Drainage Device from Peritoneum, Percutaneous Approach (ICD-10-PCS; 2017-08-22)
DX: K91.89 Other postprocedural complications and disorders of digestive system (principal); R65.10 Systemic inflammatory response syndrome (SIRS) of non-infectious origin without acute organ dysfunction; E87.8 Other disorders of electrolyte and fluid balance, not elsewhere classified; K35.3 Acute appendicitis with localized peritonitis; I95.9 Hypotension, unspecified; E87.1 Hypo-osmolality and hyponatremia; Y83.8 Other surgical procedures as the cause of abnormal reaction of the patient, or of later complication, without mention of misadventure at the time of the procedure; Y82.8 Other medical devices associated with adverse incidents; K56.7 Ileus, unspecified; D72.825 Bandemia; E11.9 Type 2 diabetes mellitus without complications; K38.1 Appendicular concretions; F17.210 Nicotine dependence, cigarettes, uncomplicated; K59.00 Constipation, unspecified; E87.6 Hypokalemia; E80.6 Other disorders of bilirubin metabolism; E83.42 Hypomagnesemia; E83.39 Other disorders of phosphorus metabolism; F43.9 Reaction to severe stress, unspecified; Z90.49 Acquired absence of other specified parts of digestive tract; Z71.6 Tobacco abuse counseling
CPT/HCPCS: 36415; 71045; 74018; 76700; 76770; 80048; 80053; 81001; 82150; 82374; 82565; 83605; 83690; 83735; 84100; 84436; 84439; 84443; 84479; 85025; 85610; 85730; 86886; 86900; 86901; 87040; 87081; 87086; 93005; 96361; 96365; 96375; 99291; J0330; J1100; J1885; J1956; J2001; J2250; J2270; J2405; J2543; J2550; J2704; J2710; J3010; J3480; J3490; J7030; J8597; Q0092; Q9967